=== PATIENT | female | born 1965 | race American Indian/Alaskan Native ===

== ENCOUNTER 2018-02-21 10:55 | Emergency (ER) | payer SELFPAY ==
[2018-02-21 11:13] VITALS: RESP 18; TEMP 97.9
[2018-02-21] MEDS ORDERED: DiphenhydrAMINE 50 mg/ml Inj IVP STA (11:23)
--- NOTE | 2018-02-21 11:47 | ED PDOC ---
Arrival/HPI - General Chief Complaint: Allergic Reaction Time Seen by Provider: 02/21/18 10:57 Historian: Patient - History of Present Illness Narrative History of Present Illness (Text): 02/21/18 11:43 52yo female with pmhx of hypertension who present with complaint of facial swelling, throat tightness since last night. States it started after eating [place] last night. reports history of shellfish. States she have have epi pen and was afraid to use it. she denies rash, drooling, stridor, any other inciting factors, SOB,chest pain. Past Medical History - Provider Review Nursing Documentation Reviewed: Yes - Infectious Disease Hx of Infectious Diseases: None - Reproductive Menopause: No - Cardiac Hx Cardiac Disorders: Yes Hx Hypertension: Yes - Pulmonary Hx Respiratory Disorders: No - Neurological Hx Neurological Disorder: No - HEENT Hx HEENT Disorder: No - Renal Hx Renal Disorder: No - Psychiatric Hx Psychophysiologic Disorder: No Hx Substance Use: No - Anesthesia Hx Anesthesia: No Family/Social History - Physician Review Nursing Documentation Reviewed: Yes Family/Social History: Unknown Family HX Smoking Status: Unknown If Ever Smoked Hx Alcohol Use: No Hx Substance Use: No Allergies/Home Meds Allergies/Adverse Reactions: Allergies shellfish derived Allergy (Severe, Verified 02/21/18 11:22) ANAPHYLAXIS Review of Systems - Physician Review All systems were reviewed & negative as marked: Yes - Review of Systems Constitutional: Normal Eyes: Normal, Other (Swollen) ENT: Normal Respiratory: Normal Cardiovascular: Normal Gastrointestinal: Normal Genitourinary Female: Normal Musculoskeletal: Normal Skin: Normal Neurological: Normal Endocrine: Normal Hemo/Lymphatic: Normal Psychiatric: Normal Physical Exam Vital Signs Reviewed: Yes Vital Signs Temp Pulse Resp BP Pulse Ox 02/21/18 11:07 97.9 F 86 18 171/118 H 98 Temperature: Afebrile Blood Pressure: Hypertensive Pulse: Regular Respiratory Rate: Normal Appearance: Positive for: Well-Appearing, Non-Toxic, Comfortable Pain Distress: None Mental Status: Positive for: Alert and Oriented X 3 - Systems Exam Head: Present: Atraumatic, Normocephalic, Other (No facial swelling noted) Pupils: Present: PERRL Extroacular Muscles: Present: EOMI Conjunctiva: Present: Normal Mouth: Present: Moist Mucous Membranes, Normal Lips. No: Drooling Pharnyx: No: Strider Neck: Present: Normal Range of Motion Respiratory/Chest: Present: Clear to Auscultation, Good Air Exchange. No: Respiratory Distress, Accessory Muscle Use, Wheezes, Decreased Breath Sounds, Rales, Retracting, Rhonchi Cardiovascular: Present: Regular Rate and Rhythm, Normal S1, S2. No: Murmurs Abdomen: No: Tenderness, Distention, Peritoneal Signs Back: Present: Normal Inspection Upper Extremity: Present: Normal Inspection. No: Cyanosis, Edema Lower Extremity: Present: Normal Inspection. No: Edema Neurological: Present: GCS=15, CN II-XII Intact, Speech Normal Skin: Present: Warm, Dry, Normal Color. No: Rashes Psychiatric: Present: Alert, Oriented x 3, Normal Insight, Normal Concentration Medical Decision Making ED Course and Treatment: 02/21/18 19:59 Pt presented to ED for stated history. No stridor. No drooling. PT was not in any distress in ED. Her exam was benign. She was treated and DC home with prednisone, Benadryl and pepcid Referred to her PMD - Medication Orders Current Medication Orders: Discontinued Medications Diphenhydramine HCl (Benadryl) 25 mg IVP STAT STA Stop: 02/21/18 11:24 Famotidine (Pepcid) 20 mg IVP STAT STA Stop: 02/21/18 11:24 Methylprednisolone (Solu-Medrol) 125 mg IVP STAT STA Stop: 02/21/18 11:23 Disposition/Present on Arrival - Present on Arrival Any Indicators Present on Arrival: No History of DVT/PE: No History of Uncontrolled Diabetes: No Urinary Catheter: No History of Decub. Ulcer: No History Surgical Site Infection Following: None - Disposition Have Diagnosis and Disposition been Completed?: Yes Diagnosis: Allergic reaction Disposition: HOME/ ROUTINE Disposition Time: 11:55 Patient Plan: Discharge Condition: STABLE Discharge Instructions (ExitCare): Food Allergy Additional Instructions: Follow up with your doctor Return to ED for any new or worsening symptoms Prescriptions: DiphenhydrAMINE [Benadryl] 25 mg PO Q6 #20 cap predniSONE [Prednisone] 20 mg PO BID #6 tab Referrals: Alex Oliver [Primary Care Provider] - Follow up with primary Forms: [employer] (Yoruba)
[2018-02-21 12:22] VITALS: BP 146/68; PULSE 74; O2SAT 97
== END 2018-02-21 13:02 | disposition home or self-care (01) ==
LOC: ED 10:55
DX: T78.40XA Allergy, unspecified, initial encounter (principal); I10 Essential (primary) hypertension
CPT/HCPCS: 96374; 96375; 99284; J1200; J2930